=== PATIENT | female | born 1965 | race Caucasian/White ===

== ENCOUNTER 2017-08-02 11:50 | Day surgery (SDC) | payer OTHER ==
--- NOTE | 2017-08-02 12:29 | ER Document Report ---
ED General - General Chief Complaint: Ear Pain Stated Complaint: LEFT EAR PAIN Time Seen by Provider: 08/02/17 12:12 TRAVEL OUTSIDE OF THE [place] IN LAST 30 DAYS: No - HPI Notes: Patient is a 52-year-old female who presents the ED complaining of left nipple erythema, swelling, redness without discharge 1-1/2 weeks. Patient has pain associated that is described as an ache and occasional sharp. The pain does not radiate. She has not noticed any red streaks. Patient states that she did have 2 cysts removed from that left breast many years ago. Denies any history of cancer. Last meal was a biscuit at 1100 today. Patient also complains of left ear pain 1 day. She has not noticed any drainage. Patient states that she has had many infections and issues with that left ear when she was younger. Patient has not had any recent illness, travel, exposure to sick contacts. The pain does not radiate. Pain is described as an ache. She has not been using any xnoh-azb-xjlebgb meds for her symptoms. Patient denies any drug allergies or other significant past medical history. Denies any headache, fever, head injury, neck pain, dizziness, tinnitus, URI, sore throat, chest pain, palpitations, syncope, cough, shortness of breath, wheeze, dyspnea, abdominal pain, nausea/vomiting/diarrhea, dysuria, hematuria. - Related Data Allergies/Adverse Reactions: No Known Allergies Allergy (Verified 08/02/17 11:54) Home Medications: Current Home Medications Gabapentin [Neurontin 300 mg Capsule] 300 mg PO TID 08/02/17 [History] Quetiapine Fumarate [Seroquel] 300 mg PO DAILY 08/02/17 [History] Past Medical History - Social History Smoking Status: Current Every Day Smoker Family History: Reviewed & Not Pertinent Renal/ Medical History: Denies: Hx Peritoneal Dialysis Review of Systems - Review of Systems Notes: REVIEW OF SYSTEMS: CONSTITUTIONAL : Denies fever, chills, or sweats. Denies recent illness. EENT: see hpi. No eye complaints. CARDIOVASCULAR: Denies chest pain. Denies palpitations or racing or irregular heart beat. Denies ankle edema. RESPIRATORY: Denies cough, cold, or chest congestion. Denies shortness of breath, difficulty breathing, or wheezing. GASTROINTESTINAL: Denies abdominal pain or distention. Denies nausea, vomiting , or diarrhea. Denies blood in vomitus, stools, or per rectum. Denies black, tarry stools. Denies constipation. GENITOURINARY: Denies difficulty urinating, painful urination, burning, frequency, blood in urine, or discharge. MUSCULOSKELETAL: Denies back or neck pain or stiffness. Denies joint pain or swelling. SKIN: see hpi NEUROLOGICAL: Denies confusion or altered mental status. Denies passing out or loss of consciousness. Denies dizziness or lightheadedness. Denies headache. Denies weakness or paralysis or loss of use of either side. Denies problems with gait or speech. Denies sensory loss, numbness, or tingling. ALL OTHER SYSTEMS REVIEWED AND NEGATIVE. Dictation was performed using [employer] voice recognition software Physical Exam - Vital signs Vitals: Temp Pulse Resp BP Pulse Ox 97.6 F 83 18 135/68 H 95 08/02/17 11:52 08/02/17 11:52 08/02/17 11:52 08/02/17 11:52 08/02/17 11:52 Notes: PHYSICAL EXAMINATION: accompanied by female nurse (Yany) GENERAL: Well-appearing, well-nourished and in no acute distress. HEAD: Atraumatic, normocephalic. EYES: Pupils equal round and reactive to light, extraocular movements intact, sclera anicteric, conjunctiva are normal. ENT: EAC clear b/l. Lt TM perforated (does not appear acute), no discharge or bleeding. Rt TM has scarring w/o discharge or erythema. Nares patent and without discharge. oropharynx clear without exudates. Moist mucous membranes. No sinus tenderness. NECK: Normal range of motion, supple without lymphadenopathy. No rigidity/ meningismus. Breast: (Lt): erythema, induration, warmth, tenderness, and swelling to the left nipple/areola (approx 4x4cm long at induration and erythema 7x4cm diameter) . LUNGS: Breath sounds clear to auscultation bilaterally and equal. No wheezes rales or rhonchi. HEART: Regular rate and rhythm without murmurs, rubs, gallops. Extremities: No cyanosis, clubbing, or edema b/l. Peripheral pulses 2+. Capillary refill less than 3 seconds. NEUROLOGICAL: Cranial nerves grossly intact. Normal speech, normal gait. Normal sensory, motor exams PSYCH: Normal mood, normal affect. SKIN: Warm, Dry, normal turgor, no rashes or lesions noted. Course - Re-evaluation Re-evalutation: 08/02/17 12:27 Patient is an afebrile, well-hydrated, 52-year-old female who presents to the ED with a left nipple/areolar abscess and cellulitis as well as left TM perforation, suspect chronic and not acute. Vitals are stable. PE otherwise unremarkable. General surgeon Dr. James was consulted who evaluated the patient and took over care. A CBC, CMP, lactic acid, blood cultures, n.p.o., and saline lock were ordered. Further instruction per general surgery. As for the TM rupture, I would recommend an oral antibiotic, but patient will already be on antibiotics because of the infection. She is to call ENT for further evaluation and management. Recheck with your PCM upon discharge as well. Return to the ED with any worsening/concerning symptoms otherwise. Other direction per general surgery. Patient is in agreement with plan. - Vital Signs Vital signs: Temp Pulse Resp BP Pulse Ox 97.6 F 83 18 135/68 H 95 08/02/17 11:52 08/02/17 11:52 08/02/17 12:20 08/02/17 11:52 08/02/17 11:52 - Laboratory Result Diagrams: 08/02/17 12:35 08/02/17 12:35 Laboratory results interpreted by me: 08/02/17 12:35 RDW 14.6 H Discharge - Discharge Clinical Impression: Acute abscess of areola, Perforation of left tympanic membrane Condition: Stable Disposition: SAME DAY SURGERY Admitting Provider: Surgicalist - Dr. James Additional Instructions: Call ENT Recheck with PCM upon discharge Direction per Gen Surg. Dr. James.
[2017-08-02 13:02] LABS: ABSOLUTE BASOPHILS # (AUTO) 0.1 10^3/uL (0.0-0.2); ABSOLUTE EOSINOPHILS # (AUTO) 0.2 10^3/uL (0.0-0.6); ABSOLUTE LYMPHOCYTES (AUTO) 1.6 10^3/uL (0.5-4.7); ABSOLUTE MONOCYTES (AUTO) 0.5 10^3/uL (0.1-1.4); ABSOLUTE NEUT (AUTO) 4.9 10^3/uL (1.7-8.2); BASOPHILS % (AUTO) 0.9 % (0-2); EOSINOPHILS % (AUTO) 2.1 % (0-6); HEMATOCRIT 42.5 % (36.0-47.0); HEMOGLOBIN 14.3 g/dL (12.0-15.5); HGB HCT DIFFERENCE 0.4; LYMPHOCYTES % (AUTO) 22.8 % (13-45); MEAN CORPUSCULAR HEMOGLOBIN 29.2 pg (27.0-33.4); MEAN CORPUSCULAR HGB CONC 33.6 g/dL (32.0-36.0); MEAN CORPUSCULAR VOLUME 87 fl (80-97); MONOCYTES % (AUTO) 6.4 % (3-13); RED BLOOD COUNT 4.89 10^6/uL (3.72-5.28); RED CELL DISTRIBUTION WIDTH 14.6 % (11.5-14.0); SEGMENTED NEUTROPHILS % (AUTO) 67.8 % (42-78); WHITE BLOOD COUNT 7.2 10^3/uL (4.0-10.5)
[2017-08-02 13:28] LABS: ALANINE AMINOTRANSFERASE 24 U/L (9-52); ALBUMIN 3.9 g/dL (3.5-5.0); ALKALINE PHOSPHATASE 107 U/L (38-126); ANION GAP 11 (5-19); ASPARTATE AMINO TRANSFERASE 19 U/L (14-36); BILIRUBIN,DIRECT 0.4 mg/dL (0.0-0.4); BILIRUBIN,TOTAL 0.4 mg/dL (0.2-1.3); BLOOD UREA NITROGEN 13 mg/dL (7-20); CALCIUM 9.6 mg/dL (8.4-10.2); CARBON DIOXIDE 26 mmol/L (22-30); CHLORIDE 104 mmol/L (98-107); CREATININE RESULT 0.54 mg/dL (0.52-1.25); GLUCOSE 92 mg/dL (75-110); POTASSIUM 4.2 mmol/L (3.6-5.0); SODIUM 140.8 mmol/L (137-145); TOTAL PROTEIN 6.4 g/dL (6.3-8.2)
[2017-08-02] MEDS ORDERED: CLINDAMYCIN 600 MG/D5W RTU 600 MG/50 ML RTUPB IV ONE ×2 (13:57→19:30)
[2017-08-02] MEDS ORDERED: NORMAL SALINE 1000 ML 1,000 ML IV PRN ×2 (14:01→17:56)
--- NOTE | 2017-08-02 14:33 | HISTORY AND PHYSICAL E ---
History and Physical NAME: HANS BAIRES : 1965 AGE: 52Y ADMITTED: 08/02/2017 ROOM: CHIEF COMPLAINT: Left breast pains. HISTORY OF PRESENT ILLNESS: This is a 52-year-old female who complained of left breast pains about a week and a half ago. This gradually got worse and red and more painful, then went to the emergency room. She denies any fever but admits to having occasional chills although she relates this more to her starting menopause. PAST HISTORY: History of gastric bypass in 2000 when she was about 350 pounds and now weighs about 230 pounds. She also had sinus surgery. Denies any other medical problems other than anxiety wherein she takes Seroquel. FAMILY HISTORY: Reviewed and noncontributory. Negative diabetes mellitus. SOCIAL HISTORY: Smokes 1-1/2 packs a day, drinks occasionally. Denies recreational drug use. ALLERGIES: No known. REVIEW OF SYSTEMS: GENERAL: Admits to having occasional chills attributed to her starting menopause. Denies any fever. HEENT: No hearing or visual problems. Denies any headaches or sore throat. RESPIRATORY: Denies any shortness of breath. CARDIOVASCULAR: Denies any chest pains. No edema. GASTROINTESTINAL: Denies any nausea, vomiting, diarrhea nor constipation. GENITOURINARY: Denies dysuria. NEUROLOGIC: Takes Neurontin for her menopausal symptoms, but no definite seizure. HEMATOLOGY/LYMPHATICS: Denies any easy bruisability or lymph gland enlargement. The rest of the systems are negative. PHYSICAL EXAMINATION: GENERAL: Well developed, overweight 52-year-old female, alert and oriented, complaining of left breast pains. NECK: Supple. No thyromegaly. LUNGS: Clear. HEART: Regular sinus rhythm. ABDOMEN: Soft, nontender. EXTREMITIES: No edema. BREASTS: Left breast is red around the nipple and the nipple also is slightly swollen and very tender. The abscess appears to be around the areola and just behind the nipple area. No nipple discharge. No left axillary adenopathy palpated. IMPRESSION: Left breast abscess. PLAN: Patient for incision and drainage of left breast abscess with possible biopsy. DICTATING PHYSICIAN: RODRIGUEZ MOSS M.D. [id number] PHY#: [id number] ID: [id number] JOB#: [id number] ACCT: [id number] cc:Humera HUANG MD
[2017-08-02] MEDS ORDERED: ONDANSETRON HCL INJ/PF 4 MG/2 ML SDV ONE (16:38)
[2017-08-02] MEDS ORDERED: MIDAZOLAM 2 MG/2 ML INJ ONE (16:38)
[2017-08-02] MEDS ORDERED: PROPOFOL INJ 200 MG/20 ML VIAL IV ONE (16:39)
[2017-08-02] MEDS ORDERED: LIDOCAINE 1% INJ-PF (10 MG/ML) 30 ML SDV ONE (16:43)
[2017-08-02] MEDS ORDERED: FENTANYL CITRATE INJ/PF 100 MCG/2 ML AMPUL IV PRN ×3 (17:25)
[2017-08-02] MEDS ORDERED: PROMETHAZINE HCL INJ 25 MG/1 ML VIAL IV PRN (17:25)
[2017-08-02] MEDS ORDERED: MEPERIDINE HCL/PF INJ 25 MG/1 ML DISP.SYRIN IV PRN (17:25)
[2017-08-02] MEDS ORDERED: DIPHENHYDRAMINE HCL 50 MG/ML VIAL IV PRN (17:25)
[2017-08-02] MEDS ORDERED: MORPHINE SULFATE 10 MG/ML INJ IV PRN ×2 (17:25→17:56)
[2017-08-02] MEDS: FENTANYL CITRATE INJ/PF 100 MCG/2 ML AMPUL ONE ×2 (17:48→17:56)
[2017-08-02] MEDS ORDERED: FENTANYL CITRATE INJ/PF 100 MCG/2 ML AMPUL ONE (17:50)
[2017-08-02] MEDS ORDERED: OXYCODONE-ACETAMINOPHEN 5-325 MG TABLET PO PRN (17:55)
[2017-08-02] MEDS ORDERED: CLINDAMYCIN 600 MG/D5W RTU 600 MG/50 ML RTUPB IV SCH (18:00)
--- NOTE | 2017-08-02 18:18 | OPERATIVE REPORT E ---
Operative Report NAME: HANS BAIRES : 1965 AGE: 52Y DATE OF SURGERY: 08/02/2017 ROOM: 206 PREOPERATIVE DIAGNOSIS: Abscess, left breast. POSTOPERATIVE DIAGNOSIS: Abscess, left breast. OPERATION: Incision and drainage of left breast and biopsy of the left breast. SURGEON: RODRIGUEZ MOSS M.D. ANESTHESIA: Local, MAC. INDICATION: This is a 52-year-old female who has had swelling of the left breast around the nipple area for the past week and a half. She came to the emergency room because of worsening of the swelling and redness and tenderness on the left breast. She has a palpable swelling around the area of the nipple and around the areola. It is also erythematous around the areola. DESCRIPTION OF PROCEDURE: After adequate IV sedation, the patient was placed in supine position and the left breast prepped and draped in the usual sterile fashion. Appropriate timeout was called. Next, a local incision infiltrated around the left nipple on the superior aspect. Next, an elliptical incision was made around the anesthetized area, and some purulent material extruded out. The cultures were obtained for aerobic and anaerobic. The incision was slightly enlarged laterally and medially to allow the finger to be inserted into the abscess cavity. The digital palpation of the abscess cavity was then performed, and no other areas of tunneling was noted. There was some whitish material that was quite soft and about 1 mm in diameter. The wound was then irrigated with saline solution. Further hemostasis obtained with electrocautery. The nipple itself has some whitish discharge on squeezing the nipple. This discharge is non-foul smelling. Following this, an area of the lateral aspect of the nipple area was excised sharply. A specimen will be sent for biopsy. Hemostasis was then controlled with cautery. Next, the wound was then packed with Iodoform gauze. The incision was left open. DICTATING PHYSICIAN: RODRIGUEZ MOSS M.D. [id number] PHY#: [id number] ID: [id number] JOB#: [id number] ACCT: [id number] cc:RODRIGUEZ MOSS M.D. >
[2017-08-02] MEDS ORDERED: CLINDAMYCIN 600 MG/D5W RTU 0 MG/0 ML RTUPB IV ONE (18:21)
[2017-08-02] MEDS ORDERED: HYDROCODONE/ACETAMINOPHEN 5-325 MG TABLET ONE (20:26)
[2017-08-02] MEDS ORDERED: GABAPENTIN 300 MG CAPSULE PO ONE (22:15)
[2017-08-02] MEDS ORDERED: QUETIAPINE FUMARATE 100 MG TABLET PO ONE (22:15)
[2017-08-02] MEDS: CLINDAMYCIN 600 MG/D5W RTU 600 MG/50 ML RTUPB IV SCH (23:42)
[2017-08-03] MEDS: HYDROCODONE/ACETAMINOPHEN 5-325 MG TABLET PO PRN ×2 (04:32→09:24)
[2017-08-03] MEDS: CLINDAMYCIN 600 MG/D5W RTU 600 MG/50 ML RTUPB IV SCH ×2 (05:52→12:57)
[2017-08-03] MEDS: GABAPENTIN 300 MG CAPSULE PO SCH ×2 (06:44→15:28)
[2017-08-03] MEDS ORDERED: HYDROMORPHONE HCL INJ/PF 2 MG/ML AMPULE ONE (17:04)
[2017-08-03 17:35] VITALS: BP 111/68
[2017-08-03] MEDS ORDERED: QUETIAPINE FUMARATE 100 MG TABLET PO SCH (22:00)
--- NOTE | 2017-08-03 22:13 | DISCHARGE SUMMARY E ---
Discharge Summary NAME: HANS BAIRES : 1965 AGE: 52Y ADMITTED: 08/02/2017 DISCHARGED: 08/03/2017 FINAL DIAGNOSIS: Abscess of the left breast. PROCEDURE: 08/02/2017: I and D of abscess, left breast with left breast biopsy. HOSPITAL COURSE: This is a 52-year-old female who noted pains and swelling along the left breast just around the nipple. She denies any trauma or injury to the left breast. An incision and drainage has been performed of an abscess just underneath the left nipple area. Cultures were obtained. Packing was placed. On the day of discharge the packing was removed and new Iodoform packing was placed. The wound looks clean and dry. She will be continued on p.o. clindamycin 300 mg p.o. 4 times a day and [place] 5/325 one q.6 h. p.r.n. for pain. She is tolerating regular diet and she can do lifting of any weights from 10-20 pounds. She will be followed in the Surgical Clinic in about a week. Once seen in the clinic the packing will be removed. DICTATING PHYSICIAN: RODRIGUEZ MOSS M.D. [id number] PHY#: [id number] ID: [id number] JOB#: [id number] ACCT: [id number] cc:Vladimir MALLORY FAUSTINO M.D. >
== END 2017-08-03 18:40 | disposition home or self-care (01) ==
LOC: ER 11:50 → ASU 14:19 → 2N 15:00 → ASU 08-03 18:40
PROVIDERS: ATTEND Surgery
PROC: 0H9U0ZZ Drainage of Left Breast, Open Approach (ICD-10-PCS; principal; 2017-08-02 19:00)
DX: N61.1 Abscess of the breast and nipple (principal); N60.12 Diffuse cystic mastopathy of left breast; F17.210 Nicotine dependence, cigarettes, uncomplicated; Z79.899 Other long term (current) drug therapy; Z78.0 Asymptomatic menopausal state
CPT/HCPCS: 99284; 96365; 36415; 87040; 87070; 87205; 85025; 87075; 87077; 80053; 83605; 88342 ×2; 88305 ×2; 10060; A6266 ×2; J2250; J3010; J3490; J2270; J1170; J2405; J7030; J2704; 400